=== PATIENT | female | born 1970 | race Caucasian/White ===

== ENCOUNTER 2018-02-03 21:30 | Emergency (ER) | payer OTHER, SELFPAY ==
[2018-02-03 21:30] VITALS: BP 137/80; PULSE 92; RESP 15; TEMP 36.8
--- NOTE | 2018-02-03 21:46 | RAD_ITS ---
STUDY: X-RAY - RIGHT ANKLE REASON FOR EXAM: Female, 47 years old. Rolled ankle, swelling laterally. TECHNIQUE: 3 view(s) of the ankle. COMPARISON: None. FINDINGS: Normal visualized distal tibia and fibula. Normal medial and lateral malleoli. Normal tibiotalar articulation and ankle mortise. Normal visualized talus and calcaneus. The visualized subtalar, talonavicular, calcaneocuboid and tarsal articulations are normal. The soft tissue structures are unremarkable. RAD/Ankle min 3 Views IMPRESSION: No acute osseous injury. Electronically Signed: Lizbet Schultz MD at 22:42 EDT Tel , Service support ,
--- NOTE | 2018-02-03 21:55 | ED.DCSUM_ITS ---
- ER Visit Summary Date of Service: 02/03/18 Chief Complaint: Right ankle pain History of Present Illness: The patient is a 47 F was chasing her dog through her backyard when she slipped and fell in the mud injuring her right ankle. No other injuries. Did not hit her head. No LOC. No prior history of right lower leg injury or surgery. Physical Examination: Well appearing middle-aged female. Vital signs are stable. HEENT exam unremarkable atraumatic. C-spine and back nontender. Normal range of motion. Lungs clear to auscultation bilaterally. Heart regular rate and rhythm no murmur. Chest nontender. Abdomen soft nontender. Pelvic girdle intact and nontender. She has full range of motion to both upper and lower extremities. The right hip and knee are nontender with normal range of motion. The right lower leg is nontender except for the right lateral malleolus which is mildly swollen. No gross bony deformity. Medial malleolus nontender swollen nontender. Intact DP pulse. Foot nontender. Neurovascular intact. Normal cap refill touch sensation. Able to wiggle her toes. Achilles tendon is intact. Calf muscle is nontender. Neurologic exam normal. Test Results: Right ankle x-ray no fracture. No dislocation. Mild right lateral malleolus soft tissue welling consistent with an ankle sprain. Emergency Department Course and Treatment: Patient's exam is consistent with a right ankle sprain. She did not want anything for pain. Treatment Plan: Ice and elevate. Motrin for pain. Aircast. Disposition: discharge Impression: Acute fall with right ankle sprain This note was generated with [employer] dictation software. It may contain incorrect words, spelling, and punctuation that were not noted in review of the chart prior to signing ED Disposition - Plan for ED Patient: Disposition: Home or Assisted Living Chief Complaint: Lower Extremity Injury Instructions: ED Sprain Ankle W X Ray Referrals: Saud Martinez MD [Primary Care Provider] - 1 Week if not improving Additional Instructions: Ice and elevate the right ankle. Motrin for pain and swelling. Increase activity as tolerated. Follow-up with your doctor if not improving to have this reexamined.
== END 2018-02-03 22:32 | disposition home or self-care (01) ==
LOC: ED 22:05
PROVIDERS: Emergency Provider Emergency Medicine
DX: S93.401A Sprain of unspecified ligament of right ankle, initial encounter (principal); W01.0XXA Fall on same level from slipping, tripping and stumbling without subsequent striking against object, initial encounter; Y93.02 Activity, running; Y92.007 Garden or yard of unspecified non-institutional (private) residence as the place of occurrence of the external cause; Y99.9 Unspecified external cause status; F32.9 Major depressive disorder, single episode, unspecified; Z79.899 Other long term (current) drug therapy
CPT/HCPCS: 73610; 99283

== ENCOUNTER 2023-06-08 08:40 | Emergency (ER) | payer OTHER, SELFPAY ==
[2023-06-08 08:41] VITALS: BP 93/73; PULSE 80; RESP 16; TEMP 36.3; O2SAT 98; BMI 31.6
--- NOTE | 2023-06-08 08:45 | EX.ED.DYSGE1 ---
HPI History of Present Illness Chief Complaint: Abd Pain [facility] Home Medications citalopram 20 mg tablet (Celexa) 20 mg PO DAILY 02/03/18 [History Last Taken Unknown] omeprazole 20 mg capsule,delayed release 20 mg PO DAILY #30 CAPSULES 06/08/23 [Rx Last Taken Unknown] promethazine 25 mg tablet 25 mg PO TID PRN nausea and vomiting #20 tabs 06/08/23 [Rx Last Taken Unknown] Allergy/AdvReac Type Severity Reaction Status Date / Time lexapro AdvReac Intermediate Other Uncoded 06/08/23 08:41 tramadol AdvReac other Uncoded 06/08/23 08:41 Social History Smoking Status: Never smoker EXAM Physical Exam Const Vital Signs: 06/08/23 08:41 Temperature 97.3 F L Temperature Source Temporal Pulse Rate 80 Respiratory Rate 16 Blood Pressure 93/73 Blood Pressure Mean 79 Pulse Ox 98 Oxygen Delivery Method Room Air MDM MDM MDM Narrative Medical decision making narrative: HISTORY OF PRESENT ILLNESS: 53-year-old female here with right upper quad abdominal pain nausea vomiting. She states she had 1 day of increased epigastric/right upper quadrant abdominal pain is not associated with food. Notes history of cholecystectomy in the past. Denies fever. Denies any vomiting but notes nausea. Has regular loose stools that is chronic after getting her gallbladder out. No urinary symptoms. No vaginal discharge or bleeding. REVIEW OF SYSTEMS: Pertinent positives: Right upper quad abdominal pain, nausea and vomiting Pertinent negatives: Diarrhea, melena, hematemesis, medic easier PHYSICAL EXAM: Nursing triage notes reviewed, Vital signs reviewed Constitutional: please see mdm HENT: MMM Eyes: Pupils equal round and reactive to light, Extraocular muscles intact Neck: No stridor, no JVD, full neck ROM Lungs: Clear to auscultation, No wheezing or rales. No increased work of breathing, no conversational dyspnea, no accessory muscle use, no nasal flaring. No respiratory distress noted Heart: Regular rate and rhythm, No murmurs, No rubs and No gallops, 2+ distal pulses (radial, femoral, posterior tibial) in all extremities Abdomen: Soft, epigastric/right upper quadrant tenderness rigidity, rebound or guarding, no obvious peritoneal signs, no palpable pulsatile abdominal masses, no auscultated abdominal bruit : No CVAT Extremities: No edema Neuro: No focal neurological deficits, cranial nerves II through XII intact, 5/5 strength in all extremities. Intact sensation to light touch in all extremities, 2+ reflexes bilateral patella tendons. Normal gait. No ataxia. Skin: No rash or lesions noted MEDICAL DECISION MAKING: Chief Complaint: Abdominal pain External records reviewed: no recent Factors affecting care: None reported in [facility]. Per clinic state patient has a history of acute cystitis, anxiety, uterine fibroids, Macie thyroiditis Social determinants of health: none History obtained from others: The patient's daughter Consults: none ALL IMAGES (IF OBTAINED) HAVE BEEN PERSONALLY REVIEWED AND INTERPRETED BY MYSELF. EKG with normal sinus rhythm, normal axis, no intervals, no STEMI CBC without leukocytosis, severe anemia, no thrombocytopenia. BMP without evidence of significant electrolyte abnormalities, no anion gap, no acute kidney injury. Troponin is negative, no evidence of myocardial ischemia Lipase is wnl indicating no pancreatic inflammation. LFTs show no evidence of hepatobiliary pathology. Urine test is negative Urinalysis shows no evidence of urinary inflammation suggestive of UTI MDM Narrative: Patient was initially afebrile nontoxic-appearing. Blood pressures. Abdominal exam was remarkable for right upper quadrant TTP, epigastric TTP but no obvious peritoneal signs. I considered the following differential diagnosis: Gastroenteritis, acute cholecystitis, hepatobiliary production, pancreatitis, obstruction, perforation, occult ACS I obtained a broad lab work-up to further elucidate the etiology of the patient's complaints. I gave symptomatic treatment in the form of IV narcotics, IV Zofran and IV Toradol. Rehydrated/resuscitated the patient with 1 L normal saline. EKG, troponin negative for myocardial ischemia. Labs withou evidence of significant leukocytosis to suggest systemic inflammation, no evidence of endorgan hypoperfusion, DAPHNE, inflammation of the pancreas liver, no signs of UTI or . No clear etiology be ascertained. We will give the patient symptomatic treatment the form of oral Phenergan as well as omeprazole and give GI follow-up for outpatient evaluation. The patient and/or family, caregivers express understanding. The patient and/or family, caregivers agrees with the plan. Shared decision making: I will have a discussion with the patient and or visitors regarding risk/benefits of further testing or admission. They will be made aware of of the risk/benefits inherent in this decision they will be given the opportunity to voice understanding. Total critical care time today provided was at least 0 minutes. This excludes separately billable procedures. Critical care time (if documented) is secondary to the patient having high probability of clinically significant/life threatening deterioration in the patient's condition which required my urgent intervention. Impression: 1. Acute epigastric abdominal pain 2. Nausea and vomiting Dispo: Discharge Lab Data Attestation: I reviewed the patient's lab results. Labs: Laboratory Results - last 24 hr 06/08/23 06/08/23 09:00 09:35 WBC 9.7 RBC 4.39 Hgb 14.0 Hct 41.9 MCV 95.4 MCH 31.9 MCHC 33.4 RDW Std Deviation 48.0 H RDW Coeff of Jeanmarie 13.6 Plt Count 298 MPV 10.9 Immature Gran % (Auto) 0.400 Neut % (Auto) 61.4 Lymph % (Auto) 27.2 [place] % (Auto) 6.8 Eos % (Auto) 3.7 Baso % (Auto) 0.5 Absolute Neuts (auto) 5.9 Absolute Lymphs (auto) 2.62 Nucleated RBC % 0 Sodium 137 Potassium 4.3 Chloride 108 H Carbon Dioxide 23.0 Anion Gap 6 BUN 11 Creatinine 0.72 Estim Creat Clear Calc 89.89 Est GFR (MDRD) Af Amer 110 Est GFR (MDRD) Non-Af 91 BUN/Creatinine Ratio 15.4 Glucose 94 Calcium 8.9 Total Bilirubin 0.30 Direct Bilirubin 0.10 AST 24 ALT 35 Alkaline Phosphatase 92 Troponin I High Sens < 3 L Total Protein 7.4 Albumin 3.7 Globulin 3.7 Lipase 34 Urine Color Yellow Urine Clarity Sl. Cloudy Urine pH 6.0 Ur Specific Mitchell 1.010 Urine Protein Negative Urine Glucose (UA) Normal Urine Ketones Negative Urine Occult Blood Negative Urine Nitrite Negative Urine Bilirubin Negative Urine Urobilinogen Normal Ur Leukocyte Esterase 25 H Urine RBC 0 SEEN Urine WBC 0-5 SEEN Ur Squamous Epith Cells 0-5 SEEN Urine Bacteria 1+ Urine Mucus 0 SEEN Urine Test Negative Discharge Plan Triage Chief Complaint: Abd Pain ED Provider: Josh Real Dx/Rx/DC Orders Instructions: ED Abdominal Pain Unkn Cause Fem Prescriptions: New promethazine 25 mg tablet 25 mg PO TID PRN (Reason: nausea and vomiting) Qty: 20 0RF omeprazole 20 mg capsule,delayed release(DR/EC) 20 mg PO DAILY Qty: 30 0RF No Action citalopram [Celexa] 20 MG tablet 20 mg PO DAILY Stand Alone Forms: ED Work / School Excuse Referrals: Friend,Zach, [Med Staff - Active Staff] - Activity Restrictions/Additional Instructions: Thank you for trusting us with your care today! Please take Tylenol (2 pills, 650 mg), ibuprofen (2 pills, 400 mg) every 6 hours as needed for pain and fever control. Please take p.o. Phenergan for nausea and begin taking daily omeprazole to relieve symptoms. Please return to the emergency department if your symptoms change or worsen. Specifically develop nausea vomiting that is not controlled by oral Phenergan. If you develop worsening pain, fever or if you lose consciousness. Please follow with your primary care physician for further outpatient evaluation and management. Disposition Disposition: Home, Self Care Discharge Date/Time: 06/08/23 11:23
--- NOTE | 2023-06-08 08:59 | EKG12_ITS ---
Test Reason : GENERAL Blood Pressure : / mmHG Vent. Rate : 074 BPM Atrial Rate : 074 BPM P-R Int : 158 ms QRS Dur : 076 ms QT Int : 376 ms P-R-T Axes : 008 015 030 degrees QTc Int : 417 ms Normal sinus rhythm Normal ECG Confirmed by LINDA BELTRAN, JAMILA ([id number]), editor continuity and script JEB TERRY ([id number]) on 06/13/2023 11:25:13 AM Referred By: Confirmed By:BERTHA MCKEON MD
[2023-06-08 09:10] LABS: Absolute Lymphocyte Count 2.62 X10^3/uL (0.83-4.51); Absolute Neutrophil Count 5.9 X10^3/uL (2.0-7.7); Basophil# 0.05 X10^3/uL; Basophil% 0.5 % (0-1); Eosinophil# 0.36 X10^3/uL; Eosinophils% 3.7 % (0-5); Hematocrit 41.9 % (37-47); Lymphocyte # 2.62 X10^3/ul (0.83-4.51); Lymphocyte % 27.2 % (19-41); Mean Corp Hgb Conc 33.4 g/dL (32-36); Mean Corpuscular Hgb 31.9 pg (27.0-32.0); Mean Corpuscular Volume 95.4 fL (81-99); Mean Platelet Vol. 10.9 fl (6.2-12.0); Monocyte# 0.66 X10^3/uL; Monocyte% 6.8 % (0-10); NRBC Flagged by Analyzer 0 % (0-5); Neutrophil # 5.92 X10^3/uL (2.7-7.7); Neutrophil % 61.4 % (47-70); Platelet Count 298 K/mm3 (150-450); RBC Distribution Width CV 13.6 % (11.6-14.6); Red Blood Count 4.39 M/mm3 (4.2-5.4); White Blood Count 9.7 K/mm3 (4.4-11.0)
[2023-06-08] MEDS: 0.9% Normal Saline (1000mL) 1,000 ML 1000 ML IV (09:15)
[2023-06-08] MEDS: Ondansetron 4 MG/2 ML Vial IV (09:15)
[2023-06-08] MEDS: Morphine 4 MG/ML Syringe IV (09:16)
[2023-06-08] MEDS: Ketorolac 15 MG/ML Vial IV (09:16)
[2023-06-08 09:36] LABS: Anion Gap 6 (5-15); BUN 11 mg/dL (7-18); BUN/Creat Ratio 15.4 RATIO (10-20); Calcium,Total 8.9 mg/dL (8.5-10.1); Chloride 108 mmol/L (98-107); Creatinine, Serum 0.72 mg/dL (0.55-1.02); EST Glomerular Filtration Rate 91 mL/min (>60); Est Glom Filt Rate - Afr Amer 110 mL/min (>60); Estimated Creatinine Clearance 89.89 ml/min; Glucose 94 mg/dL (74-106); Lipase 34 U/L (13-75); Potassium 4.3 mmol/L (3.5-5.1); Sodium Level 137 mmol/L (136-145); Troponin-I HS < 3 pg/mL (3.0-54.0)
[2023-06-08 09:38] LABS: Mucous, Urine 0 SEEN /hpf (<or=2+); Red Blood Cells-Urine 0 SEEN /hpf (0-5)
[2023-06-08 09:49] LABS: Color, Urine Yellow (Yellow); Glucose, Dipstick Normal (Normal); Ketone-Dipstick Negative (Negative); Leukocyte Esterase-Dipstick 25 /ul (Negative); Nitrite-Dipstick Negative (Negative); Occult Blood-Urine Negative /ul (Negative); Protein-Dipstick Negative (Negative); Urine Bilirubin Dipstick Negative (Negative); Urine Clarity Sl. Cloudy (Clear); Urine Urobilinogen Normal (Normal)
[2023-06-08 09:57] LABS: Bacteria 1+ /hpf (None Seen); Internal QC Validated? YES +Cl - CLEAR BKGD; Pregnancy, Urine Negative Negative; Record Kit Lot#,Urine Preg 667200; Squamous Epithelial Cells - UA 0-5 SEEN /hpf (5-10); White Blood Cells 0-5 SEEN /hpf (0-5)
[2023-06-08 10:35] LABS: AST(SGOT) 24 U/L (15-37); Alanine Aminotransfer ALT/SGPT 35 U/L (13-56); Albumin, Serum 3.7 g/dL (3.2-5.0); Alkaline Phosphatase 92 U/L (45-117); Globulin 3.7 g/dL (2.2-4.2); Protein, Total 7.4 g/dL (6.4-8.2)
== END 2023-06-08 11:23 | disposition home or self-care (01) ==
PROVIDERS: Emergency Provider Emergency Medicine; Visit Provider Emergency Medicine
DX: R10.13 Epigastric pain (principal); R11.2 Nausea with vomiting, unspecified
CPT/HCPCS: 80048; 80076; 81001; 81025; 83690; 84484; 85025; 93005; 96361; 96374; 96375; 99283; J7030; A4216; J2405